=== PATIENT | female | born 1960 | race Caucasian/White ===

== ENCOUNTER → 2016-10-04 | Outpatient (CLI) | payer OTHER | LOC: FIMAGING 09:38 | DX: Z12.31 Encounter for screening mammogram for malignant neoplasm of breast (principal) | CPT/HCPCS: G0202 ==

== ENCOUNTER → 2017-10-05 | Outpatient (CLI) | payer OTHER | LOC: FIMAGING 08:20 | PROVIDERS: ATTEND Family Medicine | DX: Z12.31 Encounter for screening mammogram for malignant neoplasm of breast (principal) ==

== ENCOUNTER 2018-04-04 12:49 | Emergency (ER) | payer OTHER ==
--- NOTE | 2018-04-04 13:04 | EDPHY ---
H & P Time Seen by Provider: 04/04/18 13:03 HPI/ROS: Chief complaint. Possible swallowed foreign body HPI. 57-year-old female presents to emergency department with concern that she may have swallowed a straight pin 2 days ago. 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 She was distracted and then realized the pin was no longer in her mouth. She is not aware that she dropped it. She has had 2 days of tightness in her upper chest that is not worse with eating or breathing or exertion. She denies shortness of breath. No sore throat. No spitting up any blood. No abdominal pain. No history of heart problems. ROS 10 systems were reviewed and negative with the exception of the elements mentioned in the history of present illness Past Medical/Surgical History: Hypothyroid, fibromyalgia, dyslipidemia Social History: Single, nonsmoker, no alcohol Smoking Status: Never smoked Physical Exam: General Appearance: Alert pleasant well-developed female mild distress vital signs significant for initial blood pressure 166/112 Eyes: Pupils equal and round no pallor or injection. ENT, Mouth: Mucous membranes are moist. Pharynx without evidence of foreign body or bleeding or swelling Respiratory: There are no retractions, lungs are clear to auscultation. Cardiovascular: Regular rate and rhythm. Gastrointestinal: Abdomen is soft and nontender, no masses, bowel sounds normal. Neurological: Awake and alert, sensory and motor exams grossly normal. Skin: Warm and dry, no rashes. Musculoskeletal: Neck is supple nontender. Extremities symmetrical, full range of motion. Psychiatric: Patient is oriented X 3, there is no agitation. Constitutional: Initial Vital Signs Temperature (C) 37.9 C 04/04/18 12:53 Heart Rate 81 04/04/18 12:53 Respiratory Rate 16 04/04/18 12:53 Blood Pressure 166/112 H 04/04/18 12:53 O2 Sat (%) 95 04/04/18 12:53 O2 Delivery Mode Room Air Allergies/Adverse Reactions: No Known Allergies Allergy (Unverified 04/04/18 12:52) Home Medications: Medication Instructions Recorded Amitriptyline HCl 04/04/18 Flexeril 10 MG (*) 04/04/18 Synthroid 04/04/18 Medical Decision Making - Diagnostics EKG Interpretation: EKG interpreted by me shows normal sinus rhythm. Normal interval. Normal axis. QRS shows a right bundle branch block. There is no obvious ST elevation or depression or a arrhythmia. Rate is 91 Imaging Results: X-rays of the cervical spine, chest, abdomen show no evidence for foreign body ED Course/Re-evaluation: Point of care troponin is 0.01 Patient and I discussed imaging study results and EKG findings. We discussed treatment plan including criteria for return importance of follow-up further evaluation. Patient tells me she has never had a previous EKG. Differential Diagnosis: I considered foreign body in throat, chest, abdomen. With 2 days of chest tightness I considered acute coronary syndrome. She has right bundle branch block on her EKG without previous EKGs. She has a normal troponin. The chest discomfort may be stress and anxiety as she has no change with exertion, breathing. I do not at this point suspect acute coronary syndrome or pulmonary embolus - Data Points Laboratory Results: 04/04/18 13:43 POC Troponin I 0.01 ng/mL ng/mL (0.00-0.08) Point of Care Test Results: Chemistry 04/04/18 13:43 POC Troponin I 0.01 ng/mL ng/mL (0.00-0.08) Departure - Departure Disposition: Home, Routine, Self-Care Clinical Impression: Chest pain Qualifiers: Chest pain type: unspecified Qualified Code(s): R07.9 - Chest pain, unspecified Condition: Good Instructions: Chest Pain (ED) Additional Instructions: You have a right bundle branch block on her EKG which shows moving a conduction delay in your heart causing a heart beat. This does not mean you have blockage in your artery. There are no findings on your x-rays of a pin and your x-rays are otherwise normal. take your EKG with you to your next doctor's appointment. Return for worsening chest discomfort. Should chest discomfort continue for the next 1-2 days please follow-up with your regular physician Referrals: SUNDAR WILKS [Primary Care Provider] - 1 day, if not improved
--- NOTE | 2018-04-04 13:31 | CPEKG ---
Test Reason : OPEN Blood Pressure : / mmHG Vent. Rate : 091 BPM Atrial Rate : 090 BPM P-R Int : 126 ms QRS Dur : 143 ms QT Int : 387 ms P-R-T Axes : 054 075 -09 degrees QTc Int : 477 ms Sinus rhythm Right bundle branch block Confirmed by Kunal Montoya ([id number]) on 04/04/2018 1:30:34 PM Referred By: Confirmed By:Kunal Montoya
[2018-04-04 14:20] VITALS: BP 152/91
== END 2018-04-04 14:20 | disposition home or self-care (01) ==
DX: R07.9 Chest pain, unspecified (principal); E03.9 Hypothyroidism, unspecified; M79.7 Fibromyalgia; E78.5 Hyperlipidemia, unspecified
CPT/HCPCS: 84484-PO

== ENCOUNTER → 2018-10-09 | Outpatient (CLI) | payer OTHER | LOC: FIMAGING 09:14 | PROVIDERS: ATTEND Family Medicine | DX: Z12.31 Encounter for screening mammogram for malignant neoplasm of breast (principal); Z80.3 Family history of malignant neoplasm of breast ==